=== PATIENT | male | born 1950 | race Caucasian/White ===

== ENCOUNTER 2020-08-03 08:48 | Outpatient (CLI) | payer OTHER, SELFPAY ==
--- NOTE | 2020-08-03 09:03 | USCV_ITS ---
Adonis Abdul Age: 69 Gender: M : 1950 Exam Date: 08/03/2020 09:16 Ordering Phys: Neeta Mark MD Technologist: Marija Turner Exam Location: [facility] [place]_ Indication: AAA HISTORY: KNOWN AAA, NOT ABLE TO HANDLE SURGERY. VIEWS LIMITED TO AAA DUE TO BODY HABITUS Diameter (cm) AP x Transverse x Length Velocity (cm/s) Waveform Prox Aorta: x x Mid Aorta: x x Distal Aorta: 8.66 x 7.81 x Right Iliac Prox: 1.87 x x Left Iliac Prox: 1.81 x x Stent Prox Landing x x Aneurysmal Sac Max x x Lt Lat Sac Dim Rt Lat Sac Dim Stent Dist Landing x x Right Iliac Stent x x Left Iliac Stent x x Right Renal Art Left Renal Art FINDINGS: Distal abdominal aorta measuring 8.66 x 7.81 cm in size. Proximal common iliac artery measuring 1.87 cm on the right and 1.81 cm in the left CONCLUSIONS Large distal abdominal aortic aneurysm, measuring 8.66 x 7.81 cm Ectatic proximal common iliac arteries measuring 1.87 cm on the right and 1.81 cm on the left Technically very limited study The proximal and the mid abdominal aorta where not visualized No obvious dissection No similar previous studies are available Consider CTA, if clinically indicated Dr Florentin Christy MD FAC (Electronically Signed) Final Date: 04 August 2020 19:26 S
== END 2020-08-03 08:49 | disposition home or self-care (01) ==
PROVIDERS: Visit Provider Family Medicine
DX: I71.4 Abdominal aortic aneurysm, without rupture (principal)
CPT/HCPCS: 93978

== ENCOUNTER 2021-01-04 06:00 | Outpatient (RCR) | payer OTHER, SELFPAY | END 2021-01-13 23:59 | disposition home or self-care (01) | LOC: TPT 06:00 | PROVIDERS: Referring Provider Family Medicine; Visit Provider Family Medicine | DX: R27.0 Ataxia, unspecified (principal) | CPT/HCPCS: 97110; 97162 ==

== ENCOUNTER 2021-01-14 06:00 | Outpatient (RCR) | payer OTHER, SELFPAY | END 2021-02-13 23:59 | disposition home or self-care (01) | LOC: TPT 06:00 | PROVIDERS: PCP Family Medicine; Referring Provider Family Medicine; Visit Provider Family Medicine | DX: R27.0 Ataxia, unspecified (principal) | CPT/HCPCS: 97110 ==

== ENCOUNTER 2021-02-14 06:00 | Outpatient (RCR) | payer OTHER, SELFPAY | END 2021-03-15 23:59 | disposition home or self-care (01) | LOC: TPT 06:00 | PROVIDERS: PCP Family Medicine; Visit Provider Family Medicine | DX: R27.0 Ataxia, unspecified (principal) | CPT/HCPCS: 97110; 97164; 97530 ==

== ENCOUNTER 2021-03-16 06:00 | Outpatient (RCR) | payer OTHER, SELFPAY | END 2021-03-30 23:59 | disposition home or self-care (01) | LOC: TPT 06:00 | PROVIDERS: PCP Family Medicine; Visit Provider Family Medicine | DX: R27.0 Ataxia, unspecified (principal) | CPT/HCPCS: 97110; 97164 ==